=== PATIENT | female | born 1970 | race Hispanic/Latino ===

== ENCOUNTER 2016-11-12 01:09 | Emergency (ER) | payer BC, OTHER ==
[~2016-11-12] VITALS: Ht 165.1 cm; Wt 129.5 kg
[2016-11-12] MEDS ORDERED: ORPHENADRINE 60 MG/2 ML (NORFLEX) AMP IM ONE (01:35)
[2016-11-12] MEDS ORDERED: KETOROLAC 60 MG/2 ML (TORADOL) VIAL IM ONE (01:35)
[2016-11-12 03:32] VITALS: BP 146/101
== END 2016-11-12 03:25 | disposition home or self-care (01) ==
LOC: ED 01:15
DX: S83.422A Sprain of lateral collateral ligament of left knee, initial encounter (principal); W54.1XXA Struck by dog, initial encounter; Y92.009 Unspecified place in unspecified non-institutional (private) residence as the place of occurrence of the external cause
CPT/HCPCS: 73562; 99283; J1885; J2360; 96372